=== PATIENT | female | born 1935 | race African-American/Black ===

== ENCOUNTER 2024-02-13 07:07 | Inpatient (IN) | payer OTHER ==
[~2024-02-13] VITALS: Ht 162.6 cm; Wt 59.8 kg
[2024-02-13 07:35] VITALS: O2SAT 100
[2024-02-13 08:34] LABS: Urine WBC None Seen /hpf (0 - 5)
[2024-02-13 09:15] LABS: Urine Bacteria FEW /hpf (None Seen); Urine Blood Negative /uL (Negative); Urine Clarity Clear (Clear); Urine Protein, UAD Negative (Negative); Urine Urobilinogen Normal (Negative)
[2024-02-13 09:27] LABS: Urine Color Straw (Yellow)
[2024-02-13 09:30] LABS: Basophils # (auto) 0 10 ^3/uL (0-0.2); Basophils % (auto) 0.3 % (0.0-2.0); Eosinophils # (auto) 0 10 ^3/uL (0-0.8); Eosinophils % (auto) 0.4 % (0.0-7.0); Hematocrit 35.1 % (36.0-46.0); Hemoglobin 11.3 g/dL (12.2-16.2); Lymphocytes # (auto) 1.2 10 ^3/uL (0.4-5.4); Lymphocytes % (auto) 21.8 % (10.0-50.0); Mean Corpuscular Hemoglobin 31.5 pg (28.0-32.0); Mean Corpuscular Hgb Conc. 32.1 g/dL (32.0-36.0); Mean Corpuscular Volume 98.1 fL (80.0-100.0); Monocytes # (auto) 0.6 10 ^3/uL (0-1.3); Monocytes % (auto) 10.6 % (0.0-12.0); Neutrophils # (auto) 3.7 10 ^3/uL (1.6-8.6); Neutrophils % (auto) 66.9 % (37.0-80.0); Red Blood Cells 3.58 10^6/uL (4.0-5.20); Red Cell Distribution Width 15.8 % (11.8-14.3); White Blood Cell 5.5 10^3/uL (4.4-10.8)
[2024-02-13 09:42] LABS: Chloride 114 mmol/L (98-107); Potassium 5.2 mmol/L (3.5-5.1); Sodium 143 mmol/L (136-145)
[2024-02-13 09:43] LABS: Anion Gap 9 (5-15); Calcium 10.5 mg/dL (8.5-10.1); Carbon Dioxide 20 mmol/L (20-30)
[2024-02-13 09:49] LABS: BUN/Creatinine Ratio 11.3 (10.0-20.0); Blood Urea Nitrogen 31 mg/dL (9-23); Glucose 67 mg/dL (74-106)
[2024-02-13] MEDS: DEXTROSE 10% 1,000 ML IV ONE (10:12)
[2024-02-13] MEDS: ALBUTEROL SULF 2.5 MG/0.5ML(0.5%) NEB SOLN NEB ONE (10:54)
[2024-02-13] MEDS ORDERED: DEXTROSE (50%) 50ML SYRG IV PRN (11:45)
[2024-02-13] MEDS ORDERED: ACETAMINOPHEN 325 MG TAB PO PRN (11:45)
[2024-02-13] MEDS ORDERED: ONDANSETRON HCL 4 MG/2 ML VIAL IV PRN (11:45)
[2024-02-13] MEDS ORDERED: NITROGLYCERIN 0.4 MG SL TAB SL PRN (11:45)
[2024-02-13] MEDS ORDERED: MORPHINE SULFATE INJ 2 MG/ml SYRG IV PRN (11:45)
[2024-02-13] MEDS: FUROSEMIDE 20 MG/2 ML VIAL IV ONE (11:52)
[2024-02-13] MEDS: CALCIUM GLUC 1,000mg/50ml-NS 50 ML IV ONE (11:52)
[2024-02-13] MEDS: SODIUM BICARB 8.4% 50Meq/50ml SYR INJ IV ONE (11:53)
[2024-02-13] MEDS: SODIUM ZIRCONIUM CYCL 10 GM PAK PO ONE (11:58)
[2024-02-13] MEDS: D5W/SOD CHL 0.45% 1,000 ML IV SCH ×2 (13:00→15:00)
[2024-02-13] MEDS: LORazepam 2MG/ML-1ML VIAL IV ONE (15:10)
[2024-02-13] MEDS ORDERED: HALOPERIDOL LACTATE 5 MG/ML INJ VIAL IM PRN (16:45)
[2024-02-13 17:39] LABS: Chloride 111 mmol/L (98-107); Potassium 4.9 mmol/L (3.5-5.1); Sodium 143 mmol/L (136-145)
[2024-02-13 17:40] LABS: Anion Gap 11 (5-15); Calcium 10.3 mg/dL (8.5-10.1); Carbon Dioxide 21 mmol/L (20-30)
[2024-02-13 17:45] LABS: BUN/Creatinine Ratio 16.3 (10.0-20.0); Glucose 163 mg/dL (74-106)
[2024-02-13 17:52] LABS: Blood Urea Nitrogen 43 mg/dL (9-23)
[2024-02-13 18:34] VITALS: BP 128/50; PULSE 80; RESP 17; TEMP 99; O2SAT 100
[2024-02-13 19:08] VITALS: BP 128/50; PULSE 80; RESP 17; TEMP 99; O2SAT 100
[2024-02-13 19:52] VITALS: BP 128/50; PULSE 80; RESP 17; TEMP 99; O2SAT 100
[2024-02-13 20:00] VITALS: PULSE 73; PULSE 89; RESP 18; RESP 20; O2SAT 100
[2024-02-13 22:12] VITALS: BP 134/57; PULSE 73; RESP 18; TEMP 99.4; O2SAT 100
[2024-02-14] VITALS (8 sets, daily range): BP systolic 119–138; BP diastolic 55–80; PULSE 70–90; RESP 16–20; TEMP 97.8–99; O2SAT 93–100
[2024-02-14 06:25] LABS: Chloride 112 mmol/L (98-107); Potassium 4.6 mmol/L (3.5-5.1); Sodium 139 mmol/L (136-145)
[2024-02-14 06:26] LABS: Anion Gap 5 (5-15); Calcium 9.8 mg/dL (8.5-10.1); Carbon Dioxide 22 mmol/L (20-30)
[2024-02-14 06:31] LABS: BUN/Creatinine Ratio 9.5 (10.0-20.0); Blood Urea Nitrogen 22 mg/dL (9-23); Glucose 70 mg/dL (74-106); Magnesium 2.2 mg/dL (1.6-2.6)
[2024-02-14] MEDS: FAMOTIDINE 20 MG TAB PO SCH (09:40)
[2024-02-14] MEDS ORDERED: MEGE40TA4 PO (15:59)
[2024-02-14] MEDS ORDERED: GLIM2TAB33 PO (16:01)
[2024-02-14] MEDS ORDERED: POTA-220 PO (16:02)
[2024-02-14] MEDS ORDERED: LORA-1121 PO (16:04)
[2024-02-14] MEDS ORDERED: ALL100T PO (16:06)
[2024-02-14] MEDS ORDERED: QUET25TA37 PO (16:07)
[2024-02-14] MEDS ORDERED: CALC0.25 PO (16:08)
[2024-02-14] MEDS ORDERED: FURO20TA3 PO (16:09)
[2024-02-14] MEDS ORDERED: DONE5TAB80 PO (16:11)
[2024-02-14] MEDS ORDERED: APIX2.5T PO (16:12)
[2024-02-14] MEDS ORDERED: FAMO-12 PO (16:13)
[2024-02-15 04:01] VITALS: BP 128/63; PULSE 70; RESP 18; TEMP 98.3; O2SAT 99
[2024-02-15 05:14] VITALS: BP 141/72; PULSE 71; TEMP 98.6; O2SAT 100
[2024-02-15 08:00] VITALS: PULSE 72; RESP 17; O2SAT 99
[2024-02-15] MEDS: D5W/SOD CHL 0.45% 1,000 ML IV SCH (08:00)
[2024-02-15 08:29] VITALS: BP 128/68; PULSE 72; RESP 17; TEMP 98.4; O2SAT 99
[2024-02-15] MEDS: ACCU-CHEK COMFORT CURVE STRIP VI SCH (12:24)
[2024-02-15 13:27] VITALS: BP 132/69; PULSE 70; RESP 17; TEMP 98.2; O2SAT 100
[2024-02-15] MEDS ORDERED: LORA-1121 PO (14:57)
[2024-02-15 15:10] VITALS: BP 132/69; PULSE 70; RESP 17; TEMP 98.2; O2SAT 100
== END 2024-02-15 15:28 | disposition home or self-care (01) | DRG 638 ==
LOC: EDBD 07:07 → ER 07:07 → TELE 11:43 → TELE-WESTW 17:50
PROVIDERS: ADMIT Hospitalist; ATTEND Hospitalist
DX: E11.649 Type 2 diabetes mellitus with hypoglycemia without coma (principal); I13.0 Hypertensive heart and chronic kidney disease with heart failure and stage 1 through stage 4 chronic kidney disease, or unspecified chronic kidney disease; I42.9 Cardiomyopathy, unspecified; N17.9 Acute kidney failure, unspecified; E11.22 Type 2 diabetes mellitus with diabetic chronic kidney disease; E87.5 Hyperkalemia; I50.9 Heart failure, unspecified; N18.32 Chronic kidney disease, stage 3b; T38.3X5A Adverse effect of insulin and oral hypoglycemic [antidiabetic] drugs, initial encounter; F03.90 Unspecified dementia, unspecified severity, without behavioral disturbance, psychotic disturbance, mood disturbance, and anxiety; Z95.0 Presence of cardiac pacemaker; Z83.3 Family history of diabetes mellitus; Z82.49 Family history of ischemic heart disease and other diseases of the circulatory system; Y92.89 Other specified places as the place of occurrence of the external cause
CPT/HCPCS: 36415; 70450; 71045; 80048; 81001; 82607; 82962; 83735; 84132; 84443; 85025; 94640; 99291; G0378

== ENCOUNTER 2024-08-16 16:34 | Emergency (ER) | payer OTHER ==
[~2024-08-16] VITALS: Ht 149.9 cm; Wt 55.9 kg
[~2024-08-16 16:34] MED LIST: ALL100T PO; APIX2.5T PO; CALC0.25 PO; DONE5TAB80 PO; FAMO-12 PO; FURO20TA3 PO; LORA-1121 PO; MEGE40TA4 PO; POTA-220 PO; QUET25TA37 PO
[2024-08-16 17:08] VITALS: BP 156/72; PULSE 74; RESP 16; O2SAT 99
[2024-08-16 17:36] LABS: Urine Bacteria None Seen /hpf (None Seen)
[2024-08-16 18:03] LABS: Urine Blood Negative /uL (Negative); Urine Clarity Clear (Clear); Urine Color Yellow (Yellow); Urine Protein, UAD 1+ (Negative); Urine Specific Gravity 1.017 (1.001-1.035); Urine Squamous Epithelial Cell FEW /hpf (<5); Urine Urobilinogen Normal (Negative); Urine WBC 10 /hpf (0 - 5)
[2024-08-16 18:31] LABS: Basophils # (auto) 0 10 ^3/uL (0-0.2); Basophils % (auto) 0.5 % (0.0-2.0); Eosinophils # (auto) 0.1 10 ^3/uL (0-0.8); Eosinophils % (auto) 1.3 % (0.0-7.0); Hematocrit 38.3 % (36.0-46.0); Hemoglobin 12.7 g/dL (12.2-16.2); Lymphocytes # (auto) 2.2 10 ^3/uL (0.4-5.4); Lymphocytes % (auto) 47.7 % (10.0-50.0); Mean Corpuscular Hemoglobin 31.8 pg (28.0-32.0); Mean Corpuscular Hgb Conc. 33.2 g/dL (32.0-36.0); Mean Corpuscular Volume 95.7 fL (80.0-100.0); Monocytes # (auto) 0.5 10 ^3/uL (0-1.3); Monocytes % (auto) 10.3 % (0.0-12.0); Neutrophils # (auto) 1.9 10 ^3/uL (1.6-8.6); Neutrophils % (auto) 40.2 % (37.0-80.0); Nucleated Red Blood Cells % 0.1 %; Platelet Count (auto) 186 10^3/uL (140-450); Red Blood Cells 4.01 10^6/uL (4.0-5.20); White Blood Cell 4.6 10^3/uL (4.4-10.8)
--- NOTE | 2024-08-16 18:39 | DVH ---
Exam: CT CT AB PEL WO CON-NO ORAL OR IV History: Rt flank pain Comparison Study: None available at time of dictation. TECHNIQUE: Multidetector CT of the abdomen was performed from lung bases to pubic symphysis. Imaging was performed without IV contrast. Axial, coronal and sagittal multiplanar reformats were obtained fr om the axial data set by the technologist. Radiation Dose Information: CT Dose: CTDI volume is 7.5 mGy. Dose-length product is 383.37 mGy*cm FINDINGS: Evaluation of solid organs is limited due to lack of intravenous contrast use. Findings: Lung Bases: No acute or significant lung base finding. Normal heart size. No pleural or pericardial effusion. Liver: The liver is normal in size. No focal lesions. Gallbladder and Biliary Tree: Unremarkable Spleen: 3.5 cm water density lesion in the spleen consistent with the splenic cyst. Pancreas: The pancreas is grossly normal in appearance. Adrenal Glands: Unremarkable Kidneys: Bilateral renal cysts calculi. Largest renal cyst on the right measures 2.9 cm. Largest cyst on the left measures 3.1 cm. There is no hydronephrosis on the right or left. Bladder: Grossly unremarkable for degree of distention. Bowel: The stomach is grossly normal in appearance. Small bowel and colon are normal in caliber and d istribution. The appendix is not visualized; however, no secondary findings of acute appendicitis id entified. Ascites: Absent Lymphadenopathy: No mesenteric, retroperitoneal or periportal lymphadenopathy. Abdominal Wall and Mesentery: Unremarkable. Vasculature: The visualized abdominal aorta is normal in size and caliber. Evaluation of abdominal a nd pelvic vessels is limited due to lack of intravenous contrast. Pelvic Organs: Uterus appears ptotic with multiple calcifications in the wall. These most likely repr esent calcified uterine fibroids. Largest is noted posteriorly it measures 3 cm. Musculoskeletal: No aggressive focal bony lesions, acute fractures or dislocation. Soft tissues: Unremarkable IMPRESSION: 1. Right hip prosthesis in place. 2. Blunting and renal cysts 3. Bilateral renal calcifications with no hydronephrosis 4. No calcifications in the gallbladder. 5. No findings of bowel obstruction. 6. Ptotic uterus with calcifications in the wall consistent with uterine fibroids largest measures 3 cm. 7. 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 Radiation optimization: All CT scans at this facility use at least one of these dose optimization te chniques: automated exposure control mA and/or kV adjustment per patient size (includes targeted exa ms where dose is matched to clinical indication) or iterative reconstruction. HS:Y
[2024-08-16 18:51] LABS: Albumin 3.8 g/dL (3.2-4.8); Alkaline Phosphatase 114 U/L (46-116); Anion Gap 5 (5-15); Aspartate Aminotransferase 13 U/L (13-40); BUN/Creatinine Ratio 12.3 (10.0-20.0); Bilirubin, Total 0.5 mg/dL (0.2-1.0); Calcium 10.2 mg/dL (8.7-10.4); Carbon Dioxide 25 mmol/L (20-31); Potassium 4.8 mmol/L (3.5-5.1); Sodium 140 mmol/L (136-145); Total Protein 6.7 g/dL (5.7-8.2)
[2024-08-16 18:57] LABS: Alanine Aminotransferase < 9 U/L (7-40); Blood Urea Nitrogen 26 mg/dL (9-23); Chloride 110 mmol/L (98-107); Glucose 129 mg/dL (74-106)
[2024-08-16] MEDS ORDERED: BACDST PO (19:10)
--- NOTE | 2024-08-16 19:11 | ED.PDOC ---
History of Present Illness HPI Comments 89-year-old female brought in by son. Patient has been acting more confused over the last 2-3 days. Patient was also been complaining of lower back pain. No complaints of urinary discomfort or foul odor in the urine. Per the son patient does have dementia and she does have comments/daily confusion but he f eels as though the confusion has been getting worse over the last few days. Nothing makes it better, nothing makes it worse. Chief Complaint: Flank Pain Time Seen by MD: 16:57 Primary Care Provider: UNKNOWN Reviewed Notes: Nurses Notes Allergies: Coded Allergies: NO KNOWN ALLERGIES (Unverified , 02/13/24) Home Meds Active Scripts Lorazepam (ATIVAN TABLET) 0.5 Mg Tb, 0.5 TAB PO QHS for NIGHT ANXIETY AND INSOMNIA, #30 TAB Prov:OWEN LOPEZ MD 02/15/24 Reported Medications Famotidine (Famotidine) 20 Mg Tab, 20 MG PO BID for 30 Days, MG 02/14/24 Apixaban Base (ELIQUIS) 2.5 Mg Tab, 2.5 MG PO BID for ANTICOAGULANT, TAB 02/14/24 Donepezil Hydrochloride (DONEPEZIL HCL) 5 Mg Tab, 5 MG PO DAILY for ALZHEIMER'S DISEASE for 30 Days, MG 02/14/24 Furosemide (Furosemide) 20 Mg Tab, 20 MG PO DAILY for DIURETIC for 30 Days, MG 02/14/24 Calcitriol (Calcitriol) 0.25 Mcg Cap, 0.25 MCG PO DAILY for HYPOCALCEMIA for 30 Days, MCG 02/14/24 Quetiapine Fumerate (Seroquel) 25 Mg Tab, 25 MG PO QHS for SLEEP for 30 Days, MG 02/14/24 Allopurinol (ZYLOPRIM TABLET) 100 Mg Tb, 1 TAB PO DAILY for GOUT, #30 TAB 5 Refills 02/14/24 Potassium Chloride (Klor-Con M20) 20 Meq Tab, 20 MEQ PO DAILY for POTASSIUM SUPPLEMENT, TAB 02/14/24 Megestrol Acetate (Megestrol Acetate) 40 Mg Tab, 40 MG PO BIDAC for APEPTIE STIMULATION, TAB 02/14/24 Information Source: Patient Mode of Arrival: Ambulatory Past Medical History PAST MEDICAL HISTORY: CHF, CKF, DM, HTN Surgical History: Pacemaker HR ADVISOR History: Denies all HR ADVISOR Hx Family History Family History: Unknown Social History Smoker: Non-Smoker Alcohol: Denies ETOH Use Drugs: Denies Drug Use Lives In: Home Constitutional: denies: chills, diaphoresis, fatigue, fever, malaise, sweats, weakness, others EENTM: denies: blurred vision, double vision, ear bleeding, ear discharge, ear drainage, ear pain, ear ringing, eye pain, eye redness, hearing loss, mouth pain, mouth swelling, nasal discharge, nose bleeding, nose congestion, nose pain, photophobia, tearing, throat pain, throat swelling, voice changes, others Respiratory: denies: cough, hemoptysis, orthopnea, SOB at rest, shortness of breath, SOB with excertion, stridor, wheezing, others Cardiovascular: denies: chest pain, dizzy spells, diaphoresis, Dyspnea on exertion, edema, irregular heart beat, left arm pain, lightheadedness, palpitations, PND, syncope, others Gastrointestinal: denies: abdomen distended, abdominal pain, blood streaked bowels, constipated, diarrhea, dysphagia, difficulty swallowing, hematemesis, melena, nausea, poor appetite, poor fluid intake, rectal bleeding, rectal pain, vomiting, others Genitourinary: denies: abnormal vagina bleeding, burning, dyspareunia, dysuria, flank pain, frequency, hematuria, incontinence, pain, , vagina discharge, urgency, others Neurological: denies: dizziness, fainting, headache, left sided numbness, left sided weakness, numbness, paresthesia, pre-existing deficit, right sided numbness, right sided weakness, seizure, speech problems, tingling, tremors, weakness, others Musculoskeletal: reports: back pain; denies: gout, joint pain, joint swelling, muscle pain, muscle stiffness, neck pain, others Integumetry: denies: bruises, change in color, change in hair/nails, dryness, laceration, lesions, lumps, rash, wounds, others Allergic/Immunocompromised: denies: Difficulty Healing, Frequent Infections, Hives, Itching, others Hematologic/Lymphatic: denies: anemia, blood clots, easy bleeding, easy bruising, swollen glands, others Endocrine: denies: excessive hunger, excessive sweating, excessive thirst, excessive urination, flushing, intolerance to cold, intolerance to heat, unexplained weight gain, unexplained weight loss, others Physical Exam General Appearance: No Apparent Distress, Normal HEENT: Normal ENT Inspection, Pharynx Normal, TMs Normal Neck: Full Range of Motion, Non-Tender, Normal, Normal Inspection Respiratory: Chest Non-Tender, Lungs Clear, No Accessory Muscle Use, No Respiratory Distress, Normal Breath Sounds Cardiovascular: No Edema, No JVD, No Murmur, No Gallop, Normal Peripheral Pulses, Regular Rate/Rhythm Breast Exam: Deferred Gastrointestinal: No Organomegaly, Normal Bowel Sounds, Soft Genitalia: Deferred Pelvic: Deferred Rectal: Deferred Extremities: No calf tenderness, Normal capillary refill, No pedal edema Musculoskeletal : Apperance: Normal Neurologic: Alert, airplane dispatcher II-XII nml as Tested, No Motor Deficits, Normal Affect, Normal Mood, No Sensory Deficits Cerebellar Function: Normal Reflexes: Normal Skin: Dry, Normal Color, Warm Lymphatic: No Adenopathy Was a procedure done? Was a procedure done?: No Differential Dx Considerations may include: UTI, urosepsis, dementia, pyelonephritis, lumbar strain X-Ray, Labs, Meds, VS Vital Signs Date Time Temp Pulse Resp B/P (MAP) Pulse Ox O2 Delivery O2 Flow Rate FiO2 08/16/24 17:08 99.2 74 16 156/72 (100) 99 Lab Test 08/16/24 18:10 08/16/24 17:35 Range/Units White Blood Count 4.6 4.4-10.8 10^3/uL Red Blood Count 4.01 4.0-5.20 10^6/uL Hemoglobin 12.7 12.2-16.2 g/dL Hematocrit 38.3 36.0-46.0 % Mean Corpuscular Volume 95.7 80.0-100.0 fL Mean Corpuscular Hemoglobin 31.8 28.0-32.0 pg Mean Corpuscular Hemoglobin Concent 33.2 32.0-36.0 g/dL Red Cell Distribution Width 14.0 11.8-14.3 % Platelet Count 186 140-450 10^3/uL Mean Platelet Volume 8.1 6.9-10.8 fL Neutrophils (%) (Auto) 40.2 37.0-80.0 % Lymphocytes (%) (Auto) 47.7 10.0-50.0 % Monocytes (%) (Auto) 10.3 0.0-12.0 % Eosinophils (%) (Auto) 1.3 0.0-7.0 % Basophils (%) (Auto) 0.5 0.0-2.0 % Neutrophils # (Auto) 1.9 1.6-8.6 10 ^3/uL Lymphocytes # (Auto) 2.2 0.4-5.4 10 ^3/uL Monocytes # (Auto) 0.5 0-1.3 10 ^3/uL Eosinophils # (Auto) 0.1 0-0.8 10 ^3/uL Basophils # (Auto) 0 0-0.2 10 ^3/uL Nucleated Red Blood Cells 0.1 % Sodium Level 140 136-145 mmol/L Potassium Level 4.8 3.5-5.1 mmol/L Chloride Level 110 H 98-107 mmol/L Carbon Dioxide Level 25 20-31 mmol/L Anion Gap 5 5-15 Blood Urea Nitrogen 26 H 9-23 mg/dL Creatinine 2.12 H 0.550-1.02 mg/dL Glomerular Filtration Rate Calc 22 >90 mL/min BUN/Creatinine Ratio 12.3 10.0-20.0 Serum Glucose 129 H 74-106 mg/dL Calcium Level 10.2 8.7-10.4 mg/dL Total Bilirubin 0.5 0.2-1.0 mg/dL Aspartate Amino Transferase (AST) 13 13-40 U/L Alanine Aminotransferase (ALT) < 9 7-40 U/L Alkaline Phosphatase 114 46-116 U/L Total Protein 6.7 5.7-8.2 g/dL Albumin 3.8 3.2-4.8 g/dL Urine Color Yellow Yellow Urine Clarity Clear Clear Urine pH 6.0 5.0-9.0 Urine Specific [place] 1.017 1.001-1.035 Urine Protein 1+ H Negative Urine Ketones Negative Negative Urine Blood Negative Negative /uL Urine Nitrite Negative Negative Urine Bilirubin Negative Negative Urine Urobilinogen Normal Negative mg/dL Urine Leukocyte Esterase 3+ Negative /uL Urine RBC 2 0 - 4 /hpf Urine WBC 10 0 - 5 /hpf Urine Squamous Epithelial Cells Few <5 /hpf Urine Bacteria None seen None Seen /hpf Urine Glucose Normal Normal mg/dL X-Ray, Labs, Meds, VS Comment Imaging: X-rays and CT scans were reviewed and interpreted by this provider, imaging shows no fractures and no pathological disease. Pending radiology review. Laboratory: Labs reviewed and interpreted by this provider. No significant abnormalities noted. Patient has prior medical visits reviewed. Med reconciliation performed Vital signs reviewed Time of 1ST Reevaluation: 19:10 Reevaluation 1ST: Improved Patient Education/Counseling: Diagnosis, Treatment, Need For Follow Up (Patient advised to follow-up in the emergency room in the next 24 to 48 hours if symptoms do not improve. Advised follow-up with PCP in the next 3 to 5 days. Patient verbalized understanding. ) Family Education/Counseling: Diagnosis Departure 1 Departure Time of Disposition: 19:09 Impression: Primary Impression: Lumbar herniated disc Additional Impression: Renal calculi Disposition: HOME / SELF CARE / HOMELESS Condition: Fair e-Prescriptions Sulfamethoxazole W/Trimethopri (Bactrim Ds Tablet) 1 Tab Tb 1 TAB PO BID for 5 Days, #10 TAB Prov: PADDY SIBLEY 08/16/24 Discharged With: Self Critical Care Note Critical Care Time?: No Stability Stability form required: No Heart Score Heart Score: Heart Score Response (Comments) Value History N/A 0 EKG N/A 0 Age N/A 0 Risk Factors N/A 0 Troponin N/A 0 Total 0 PADDY SIBLEY Aug 16, 2024 19:11
== END 2024-08-16 19:37 | disposition home or self-care (01) ==
LOC: ER 16:34 → EEVIPCON 16:34 → ER 19:37
DX: M51.26 Other intervertebral disc displacement, lumbar region (principal); N20.0 Calculus of kidney; I13.0 Hypertensive heart and chronic kidney disease with heart failure and stage 1 through stage 4 chronic kidney disease, or unspecified chronic kidney disease; E11.22 Type 2 diabetes mellitus with diabetic chronic kidney disease; N18.9 Chronic kidney disease, unspecified; I50.9 Heart failure, unspecified; Z95.0 Presence of cardiac pacemaker; Z79.899 Other long term (current) drug therapy; Z79.01 Long term (current) use of anticoagulants
CPT/HCPCS: 36415; 74176; 80053; 81001; 85025

== ENCOUNTER 2024-11-20 20:00 | Emergency (ER) | payer OTHER ==
[~2024-11-20] VITALS: Ht 165.1 cm; Wt 68.1 kg
[~2024-11-20 20:00] MED LIST changes: +BACDST PO
--- NOTE | 2024-11-20 20:13 | ED.PDOC ---
Musculoskeletal HPI Comments 89-year-old female with PMHx Dementia, A-Fib, CHF, Renal Disease, Gout brought in by EMS presents with a chief complaint of leg pain x 3 days. Patients family called EMS due to patients leg "swelling". Patients legs are normal in size upon evaluation. Patient is A/Ox1 at baseline and only states that her legs hurt. Jayna joiner is unable to verify if her legs are swelling. Patient is able to ambulate with steady gait. Time Seen by : 20:07 Reviewed Notes: Medications, Allergies Allergies: Coded Allergies: No Known Drug Allergy (Verified Allergy, Unknown, 11/20/24) Home Meds Active Scripts Sulfamethoxazole W/Trimethopri (Bactrim Ds Tablet) 1 Tab Tb, 1 TAB PO BID for 5 Days, #10 TAB Prov:PADDY SIBLEY 08/16/24 Lorazepam (ATIVAN TABLET) 0.5 Mg Tb, 0.5 TAB PO QHS for NIGHT ANXIETY AND INSOMNIA, #30 TAB Prov:OWEN LOPEZ MD 02/15/24 Reported Medications Famotidine (Famotidine) 20 Mg Tab, 20 MG PO BID for 30 Days, MG 02/14/24 Apixaban Base (ELIQUIS) 2.5 Mg Tab, 2.5 MG PO BID for ANTICOAGULANT, TAB 02/14/24 Donepezil Hydrochloride (DONEPEZIL HCL) 5 Mg Tab, 5 MG PO DAILY for ALZHEIMER'S DISEASE for 30 Days, MG 02/14/24 Furosemide (Furosemide) 20 Mg Tab, 20 MG PO DAILY for DIURETIC for 30 Days, MG 02/14/24 Calcitriol (Calcitriol) 0.25 Mcg Cap, 0.25 MCG PO DAILY for HYPOCALCEMIA for 30 Days, MCG 02/14/24 Quetiapine Fumerate (Seroquel) 25 Mg Tab, 25 MG PO QHS for SLEEP for 30 Days, MG 02/14/24 Allopurinol (ZYLOPRIM TABLET) 100 Mg Tb, 1 TAB PO DAILY for GOUT, #30 TAB 5 Refills 02/14/24 Potassium Chloride (Klor-Con M20) 20 Meq Tab, 20 MEQ PO DAILY for POTASSIUM SUPPLEMENT, TAB 02/14/24 Megestrol Acetate (Megestrol Acetate) 40 Mg Tab, 40 MG PO BIDAC for APEPTIE STIMULATION, TAB 02/14/24 Information Source: Patient, Emergency Med Personnel Mode of Arrival: EMS Location: Bilateral Extremity Location: Leg Timing: Days Prehospital treatment: None Severity: Moderate Able to Move Extremity: Yes Bear Weight: Fully Pain: Moderate Hand Dominance: Right Mechanism: Spontaneous Circumstances: Spontaneous Onset of Symptoms: Spontaneous Symptoms: Pain DVT Risk Factors: NONE Last Tetanus: Unknown Past Medical History PAST MEDICAL HISTORY: AFIB, CHF, Dementia, ESRD, Gout Surgical History: Pacemaker LEASE EXAMINER History: Denies all LEASE EXAMINER Hx Family History Family History: Reviewed,noncontributory to illness Social History Smoker: Non-Smoker Alcohol: Denies ETOH Use Drugs: Denies Drug Use Lives In: Home Constitutional: denies: chills, diaphoresis, fatigue, fever, malaise, sweats, weakness, others EENTM: denies: blurred vision, double vision, ear bleeding, ear discharge, ear drainage, ear pain, ear ringing, eye pain, eye redness, hearing loss, mouth pain, mouth swelling, nasal discharge, nose bleeding, nose congestion, nose pain, photophobia, tearing, throat pain, throat swelling, voice changes, others Respiratory: denies: cough, hemoptysis, orthopnea, SOB at rest, shortness of breath, SOB with excertion, stridor, wheezing, others Cardiovascular: denies: chest pain, dizzy spells, diaphoresis, Dyspnea on exertion, edema, irregular heart beat, left arm pain, lightheadedness, palpitations, PND, syncope, others Gastrointestinal: denies: abdomen distended, abdominal pain, blood streaked bowels, constipated, diarrhea, dysphagia, difficulty swallowing, hematemesis, melena, nausea, poor appetite, poor fluid intake, rectal bleeding, rectal pain, vomiting, others Genitourinary: denies: abnormal vagina bleeding, burning, dyspareunia, dysuria, flank pain, frequency, hematuria, incontinence, pain, , vagina discharge, urgency, others Neurological: denies: dizziness, fainting, headache, left sided numbness, left sided weakness, numbness, paresthesia, pre-existing deficit, right sided numbness, right sided weakness, seizure, speech problems, tingling, tremors, weakness, others Musculoskeletal: reports: muscle pain; denies: back pain, gout, joint pain, joint swelling, muscle stiffness, neck pain, others Integumetry: denies: bruises, change in color, change in hair/nails, dryness, laceration, lesions, lumps, rash, wounds, others Allergic/Immunocompromised: denies: Difficulty Healing, Frequent Infections, Hives, Itching, others Hematologic/Lymphatic: denies: anemia, blood clots, easy bleeding, easy bruising, swollen glands, others Endocrine: denies: excessive hunger, excessive sweating, excessive thirst, excessive urination, flushing, intolerance to cold, intolerance to heat, unexplained weight gain, unexplained weight loss, others Psychiatric: denies: anxiety, bipolar disorder, depression, hopeless, panic disorder, schizophrenia, sleepless, suicidal, others Unable to Obtain due to: Dementia All Other Systems: Reviewed and Negative Physical Exam General Appearance: No Apparent Distress, Normal HEENT: Normal ENT Inspection, Pharynx Normal, TMs Normal Neck: Full Range of Motion, Non-Tender, Normal, Normal Inspection Respiratory: Chest Non-Tender, Lungs Clear, No Accessory Muscle Use, No Respiratory Distress, Normal Breath Sounds Cardiovascular: No Edema, No JVD, No Murmur, No Gallop, Normal Peripheral Pulses, Regular Rate/Rhythm Breast Exam: Deferred Gastrointestinal: No Organomegaly, Non Tender, No Pulsatile Mass, Normal Bowel Sounds, Soft Genitalia: Deferred Pelvic: Deferred Rectal: Deferred Extremities: No calf tenderness, Normal capillary refill, Normal inspection, Normal range of motion, Non-tender, No pedal edema Musculoskeletal : Apperance: Normal Neurologic: Alert, bull bucker II-XII nml as Tested, No Motor Deficits, Normal Affect, Normal Mood, No Sensory Deficits Cerebellar Function: Normal Reflexes: Normal Skin: Dry, Normal Color, Warm Lymphatic: No Adenopathy Was a procedure done? Was a procedure done?: No Differential Diagnosis EXT Differential Diagnosis: Cellulitis, Deep Vein Thrombosis, Compartment Syndrome, DJD, Contusion, Strain, Rheumatoid, Septic, Neurovascular injury, Arthritis, Bursitis, Other X-Ray, Labs, Meds, VS Vital Signs Date Time Temp Pulse Resp B/P (MAP) Pulse Ox O2 Delivery O2 Flow Rate FiO2 11/20/24 20:28 98.3 60 16 147/89 (108) 100 98.3 Lab Test 11/20/24 21:03 Range/Units White Blood Count 5.0 4.4-10.8 10^3/uL Red Blood Count 3.75 L 4.0-5.20 10^6/uL Hemoglobin 12.4 12.2-16.2 g/dL Hematocrit 36.7 36.0-46.0 % Mean Corpuscular Volume 97.7 80.0-100.0 fL Mean Corpuscular Hemoglobin 33.1 H 28.0-32.0 pg Mean Corpuscular Hemoglobin Concent 33.9 32.0-36.0 g/dL Red Cell Distribution Width 14.4 H 11.8-14.3 % Platelet Count 174 140-450 10^3/uL Mean Platelet Volume 7.9 6.9-10.8 fL Neutrophils (%) (Auto) 47.8 37.0-80.0 % Lymphocytes (%) (Auto) 39.7 10.0-50.0 % Monocytes (%) (Auto) 10.9 0.0-12.0 % Eosinophils (%) (Auto) 1.1 0.0-7.0 % Basophils (%) (Auto) 0.5 0.0-2.0 % Neutrophils # (Auto) 2.4 1.6-8.6 10 ^3/uL Lymphocytes # (Auto) 2.0 0.4-5.4 10 ^3/uL Monocytes # (Auto) 0.5 0-1.3 10 ^3/uL Eosinophils # (Auto) 0.1 0-0.8 10 ^3/uL Basophils # (Auto) 0 0-0.2 10 ^3/uL Nucleated Red Blood Cells 0.0 % Prothrombin Time Pending Prothrombin Time INR Pending Activated Partial Thromboplast Time Pending Sodium Level 141 136-145 mmol/L Potassium Level 4.5 3.5-5.1 mmol/L Chloride Level 110 H 98-107 mmol/L Carbon Dioxide Level 23 20-31 mmol/L Anion Gap 8 5-15 Blood Urea Nitrogen 32 H 9-23 mg/dL Creatinine 2.23 H 0.550-1.02 mg/dL Glomerular Filtration Rate Calc 21 >90 mL/min BUN/Creatinine Ratio 14.3 10.0-20.0 Serum Glucose 155 H 74-106 mg/dL Calcium Level 9.7 8.7-10.4 mg/dL Total Bilirubin 0.5 0.2-1.0 mg/dL Aspartate Amino Transferase (AST) 16 13-40 U/L Alanine Aminotransferase (ALT) 20 7-40 U/L Alkaline Phosphatase 93 46-116 U/L B-Type Natriuretic Peptide 592.90 0-100 pg/mL Total Protein 7.0 5.7-8.2 g/dL Albumin 4.0 3.2-4.8 g/dL Time of 1ST Reevaluation: 20:37 Reevaluation 1ST: Unchanged Patient Education/Counseling: Diagnosis, Treatment, Prognosis Family Education/Counseling: No Family Present Departure 1 Departure Time of Disposition: 21:52 Impression: Primary Impression: Dementia Additional Impressions: Peripheral edema Chronic renal insufficiency Disposition: 01 HOME / SELF CARE / HOMELESS Condition: Stable Discharged With: Self, Relative Critical Care Note Critical Care Time?: No Stability Stability form required: No Heart Score Heart Score: Heart Score Response (Comments) Value History N/A 0 EKG N/A 0 Age N/A 0 Risk Factors N/A 0 Troponin N/A 0 Total 0 I personally scribed for PARMJIT MACDONALD MD ([email or web address]) on 11/20/24 at 20:13. Electronically submitted by Supa Mcginnis ([email or web address]). PARMJIT MACDONALD MD Nov 20, 2024 20:13
--- NOTE | 2024-11-20 21:00 | DVH ---
Bilateral lower extremity venous duplex Clinical History: PAIN Comparison: None Technique: Duplex Doppler evaluation of the deep venous systems of both lower extremities from the common femora l veins to the popliteal veins including color Doppler and spectral/pulsed waveform analysis was perf ormed. Findings: RIGHT SIDE: The common femoral vein demonstrates appropriate compressibility and waveform variability. There is compressibility/patency of the great saphenous vein at the proximal thigh. The femoral vein demonstrates appropriate compressibility and waveform variability. The deep femoral vein demonstrates appropriate compressibility and waveform variability. The popliteal vein demonstrates appropriate compressibility and waveform variability. There is normal compressibility at the tibioperoneal trunk. LEFT SIDE: The common femoral vein demonstrates appropriate compressibility and waveform variability. There is compressibility/patency of the great saphenous vein at the proximal thigh. The femoral vein demonstrates appropriate compressibility and waveform variability. The deep femoral vein demonstrates appropriate compressibility and waveform variability. The popliteal vein demonstrates appropriate compressibility and waveform variability. There is normal compressibility at the tibioperoneal trunk. Impression: 1. No right or left femoropopliteal venous thrombosis.
[2024-11-20 21:26] LABS: Basophils # (auto) 0 10 ^3/uL (0-0.2); Basophils % (auto) 0.5 % (0.0-2.0); Eosinophils # (auto) 0.1 10 ^3/uL (0-0.8); Eosinophils % (auto) 1.1 % (0.0-7.0); Hematocrit 36.7 % (36.0-46.0); Hemoglobin 12.4 g/dL (12.2-16.2); Lymphocytes % (auto) 39.7 % (10.0-50.0); Mean Corpuscular Hemoglobin 33.1 pg (28.0-32.0); Mean Corpuscular Hgb Conc. 33.9 g/dL (32.0-36.0); Mean Corpuscular Volume 97.7 fL (80.0-100.0); Monocytes # (auto) 0.5 10 ^3/uL (0-1.3); Monocytes % (auto) 10.9 % (0.0-12.0); Neutrophils # (auto) 2.4 10 ^3/uL (1.6-8.6); Neutrophils % (auto) 47.8 % (37.0-80.0); Platelet Count (auto) 174 10^3/uL (140-450); Red Blood Cells 3.75 10^6/uL (4.0-5.20); Red Cell Distribution Width 14.4 % (11.8-14.3)
[2024-11-20 21:40] LABS: Alanine Aminotransferase 20 U/L (7-40); Alkaline Phosphatase 93 U/L (46-116); Anion Gap 8 (5-15); Aspartate Aminotransferase 16 U/L (13-40); BUN/Creatinine Ratio 14.3 (10.0-20.0); Calcium 9.7 mg/dL (8.7-10.4); Carbon Dioxide 23 mmol/L (20-31); Potassium 4.5 mmol/L (3.5-5.1); Sodium 141 mmol/L (136-145)
[2024-11-20 21:41] LABS: Bilirubin, Total 0.5 mg/dL (0.2-1.0)
[2024-11-20 21:46] LABS: Blood Urea Nitrogen 32 mg/dL (9-23); Chloride 110 mmol/L (98-107); Glucose 155 mg/dL (74-106); INR 0.97 (0.9-1.15); Partial Thromboplastin Time 24.6 SEC (24.5-34.5); Prothrombin Time 10.3 sec (9.3-11.8)
[2024-11-20 22:20] VITALS: BP 149/83; PULSE 80; RESP 18; TEMP 98.3; O2SAT 97
== END 2024-11-20 22:23 | disposition home or self-care (01) ==
LOC: ER 20:00 → EDBD 20:00 → EDUNIT# 20:00 → ER 22:20
DX: F03.90 Unspecified dementia, unspecified severity, without behavioral disturbance, psychotic disturbance, mood disturbance, and anxiety (principal); M79.641 Pain in right hand; M79.642 Pain in left hand; N18.9 Chronic kidney disease, unspecified; I48.91 Unspecified atrial fibrillation; I50.9 Heart failure, unspecified; M10.9 Gout, unspecified; N18.6 End stage renal disease; Z79.899 Other long term (current) drug therapy; Z95.0 Presence of cardiac pacemaker
CPT/HCPCS: 36415; 80053; 83880; 85025; 85610; 85730; 93970